=== PATIENT | female | born 1975 | race Caucasian/White ===

== ENCOUNTER → 2018-02-18 14:00 | Outpatient (CLI) | payer OTHER, SELFPAY | DX: Z23 Encounter for immunization (principal) | CPT/HCPCS: 90471; 90686 ==

== ENCOUNTER → 2018-08-26 14:02 | Outpatient (CLI) | payer OTHER, SELFPAY | PROVIDERS: Visit Provider Nurse Practitioner | DX: R30.0 Dysuria (principal); R82.998 Other abnormal findings in urine | CPT/HCPCS: 87086 ==

== ENCOUNTER → 2019-12-01 08:13 | Outpatient (CLI) | payer BC, SELFPAY ==
[2019-12-03 02:31] LABS: COVID19 Sendout Not Detected (Not Detect)
== END ==
PROVIDERS: Visit Provider Physician Assistant
DX: Z03.818 Encounter for observation for suspected exposure to other biological agents ruled out (principal)
CPT/HCPCS: 87635

== ENCOUNTER → 2020-02-16 14:17 | Outpatient (CLI) | payer BC, SELFPAY | PROVIDERS: Referring Provider Internal Medicine; Visit Provider Internal Medicine | DX: Z23 Encounter for immunization (principal) | CPT/HCPCS: 90471; 90686 ==

== ENCOUNTER → 2020-03-05 10:02 | Outpatient (CLI) | payer BC, SELFPAY ==
[2020-03-06 13:16] LABS: COVID19 Sendout Not Detected (Not Detect)
== END ==
PROVIDERS: Visit Provider Nurse Practitioner
DX: Z11.59 Encounter for screening for other viral diseases (principal)
CPT/HCPCS: 87635

== ENCOUNTER → 2020-03-08 12:31 | Outpatient (CLI) | payer BC, SELFPAY ==
[2020-03-09 01:40] LABS: COVID19 Sendout Not Detected (Not Detect)
== END ==
PROVIDERS: Visit Provider Physician Assistant
DX: Z11.59 Encounter for screening for other viral diseases (principal)
CPT/HCPCS: 87635

== ENCOUNTER → 2020-04-27 13:15 | Outpatient (CLI) | payer BC, SELFPAY ==
[2020-04-27 14:29] LABS: COVID19 -Nasal RAPID Negative (Negative)
== END ==
PROVIDERS: Referring Provider Physician Assistant; Visit Provider Physician Assistant
DX: Z20.828 Contact with and (suspected) exposure to other viral communicable diseases (principal)
CPT/HCPCS: 87635

== ENCOUNTER → 2020-08-06 15:56 | Outpatient (CLI) | payer BC, SELFPAY ==
--- NOTE | 2020-08-06 15:59 | DI.ECHO.S_ITS ---
[place] +---------+ : : [address] : [address] : : : : [id number] : : : : Phone: [phone]+ Echocardiogram Report + + :Name: RIGO AYALA V Study Date: 08/06/2020 Height: 66 in : [facility] ReadingLocation: Weight: 175 lb : : Gender: Female BSA: 1.9 m2 : :: 1975 Age: 45 yrs BP: 110/70 mmHg: :Reason For Study: DYSPNEA : :Ordering Physician: ANGEL, : :RAÚL Performed By: Linn Robbins : :Referring: RAÚL PAZ : + + Interpretation Summary 1) Normal left ventricular size and thickness with low normal systolic function (EF 50-55%). 2) Normal right ventricular size and function. 3) No significant valvular abnormalities. 4) Pulmonary artery pressures cannot be estimated because of the lack of a measurable TR jet velocity. 5) No prior Echo available for comparison. Procedure: A two-dimensional transthoracic echocardiogram with color flow and Doppler was performed. The study quality was technically adequate. There is no prior echocardiogram noted for this patient. The patient was in sinus rhythm with heart rates between 72-88 bpm during the exam. Left Ventricle: The left ventricle is normal in size and wall thickness. The ejection fraction is estimated to be 50-55%. Right Ventricle: The right ventricle is normal in size and function. Atria: Both atria are normal in size. There is no Doppler evidence for an interatrial shunt. Mitral Valve: The mitral valve is normal in structure and function. There is no mitral regurgitation noted. Aortic Valve: The aortic valve is trileaflet. The aortic valve opens well. There is no aortic valve stenosis. No aortic regurgitation is present. Tricuspid Valve: The tricuspid valve is normal in structure and function. There is trace tricuspid regurgitation. Pulmonary artery pressures cannot be estimated because of the lack of a measurable TR jet velocity. Pulmonic Valve: The pulmonic valve leaflets are thin and pliable; valve motion is normal. There is no pulmonic valvular regurgitation. Great Vessels: The aortic root is normal size. The dimensions of the ascending aorta are normal. The IVC is of normal diameter and collapses greater than 50% with a sniff. This suggests a low right atrial pressure of 3 mm Hg. Pericardium/ Pleura There is no pericardial effusion. There is no pleural effusion. MMode/2D Measurements & Calculations LVIDd: 4.6 cm LVOT diam: 2.0 cm LVIDs: 3.0 cm Ao root diam: 2.8 cm FS: 35.1 % asc Aorta Diam: 3.0 cm EPSS: 0.52 cm Ao Arch Diam (Prox Trans): 2.7 cm IVSd: 0.63 cm LVPWd: 0.66 cm LV holcomb. diameter/BSA (cm/m^2): 2.4 LV sys. diameter/BSA (cm/m^2): 1.6 LA A2 area: 15.1 cm2 RA long axis: 4.2 cm LA A4 area: 12.6 cm2 RA area: 10.5 cm2 LA length (vol): 4.2 cm RA vol: 22.6 ml LA vol: 38.2 ml RA : 12.0 ml/m2 LA vol index: 20.2 ml/m2 IVC diam: 1.3 cm RVD1 (basal): 2.8 cm TAPSE: 2.0 cm Doppler Measurements & Calculations Ao V2 max: 109.2 cm/sec LVOT Max Joe: 73.8 cm/sec Ao V2 mean: 76.9 cm/sec LV V1 max P.2 mmHg Ao max P.8 mmHg LV V1 VTI: 14.7 cm Ao mean P.6 mmHg RAYSA(I,D): 2.1 cm2 Ao V2 VTI: 21.1 cm RAYSA(V,D): 2.1 cm2 sev ratio: 0.70 RAYSA indexed to BSA (cm^2/m^2): 1.1 MV E max joe: 63.6 cm/sec PA V2 max: 83.4 cm/sec MV A max joe: 68.0 cm/sec PA V2 mean: 58.3 cm/sec MV E/A: 0.94 PA mean P.5 mmHg Med Peak E' Joe: 12.6 cm/sec PA pr(Accel): 17.3 mmHg E/E' med: 5.1 Lat Peak E' Joe: 12.7 cm/sec E/E' lat: 5.0 E/e' average: 5.0 MV dec time: 0.18 sec SV(LVOT): 44.9 ml Reading Physician:09:07 PM
== END ==
PROVIDERS: PCP Physician Assistant Medical; Referring Provider Internal Medicine Cardiovascular Disease; Visit Provider Internal Medicine Cardiovascular Disease
DX: R06.00 Dyspnea, unspecified (principal)
CPT/HCPCS: 93306

== ENCOUNTER 2020-12-03 10:13 | Day surgery (SDC) | payer BC, SELFPAY ==
--- NOTE | 2020-12-03 | PATH_ITS ---
[facility] Accession Number: [id number] . 01 Material submitted: . colon - RANDOM COLON BIOPSY . 01 Clinical history: . SDC . 02 Diagnosis: Random Colon, Biopsy: Colonic mucosa with no diagnostic abnormality. Negative for active, chronic, and microscopic colitis. Negative for dysplasia and malignancy. . MRV 12/05/2020 1050 Local . 02 Electronically signed: . Bryon Riggins MD, PhD, Pathologist NPI- [id number] . 01 Gross description: . RANDOM COLON BIOPSY: Received in formalin is 1 fragment(s) of red, soft tissue measuring 0.2 x 0.2 x 0.1 cm submitted entirely in 1 cassette(s) /RAYSA 12/04/2020 0815 Local . 02 Pathologist provided ICD-10: R93.5 . 02 CPT . 315436 Performed at: 01 [facility] [address] [facility], [place], [place] [id number] MD Anderson Myers MD Phone: [phone] Performed at: 02 [facility] [address] [place], [place] [id number] MD Inna Reis MD Phone: [phone]
[2020-12-03 10:48] LABS: COVID19 -Nasal RAPID Negative (Negative)
[2020-12-03 12:15] VITALS: BP 103/65; PULSE 91; RESP 18; TEMP 36.7; O2SAT 99; BMI 27.4
[2020-12-03] MEDS: SODIUM CHLORIDE 0.9% 1,000 ML 125 ML IV (12:39)
--- NOTE | 2020-12-03 13:10 | PM.HP.1 ---
History of Present Illness History of Present Illness Date Patient Seen: 12/03/20 Time Patient Seen: 13:10 Chief complaint: SDC Narrative: I reviewed Dr Leonard's note. Has been experiencing unexplained bloating, diarrhea and had a recent CT scan that indicates need for further evaluation. Personal remote hx of colon polyps. Last cscope in 2016 was without polyps. Patient History Comment: Please see Dr Leonard's recent clinic note from July of this year. No major changes. Family & Social History Social History: household members spouse Tobacco & Substance use: Smoking Status Never smoker alcohol intake never Substance Use Type does not use Meds Home Medications and Allergies Home Medications Medication Instructions Recorded Confirmed Type albuterol sulfate 90 mcg/actuation 90 mcg INHALATION PRN PRN 12/03/20 12/03/20 History aerosol inhaler fluticasone furoate 200 1 inh INHALATION DAILY 12/03/20 12/03/20 History mcg/actuation blister powder for inhalation (Arnuity Ellipta) fluticasone propionate 50 1 spray INTRANASAL DAILY 12/03/20 12/03/20 History mcg/actuation nasal spray,suspension rosuvastatin 5 mg tablet 2.5 mg PO DAILY 12/03/20 12/03/20 History Allergies Allergy/AdvReac Type Severity Reaction Status Date / Time Sulfa (Sulfonamide AdvReac Intermediate Rash Verified 12/03/20 12:39 Antibiotics) Review of Systems Review of Systems ROS: Yes All systems reviewed with the patient and are negative except as otherwise documented Exam Vital Signs (past 8 hours): - 12/03/20 12:15 Temperature 98.0 F Pulse Rate 91 H Respiratory Rate 18 Blood Pressure 103/65 Pulse Oximetry 99 Oxygen Delivery Method Room Air Const General: cooperative and comfortable Orientation: alert HENMA Head: normocephalic Ears: external ears normal Nose: external nose normal Face and sinus: normal facial exam Mouth: oral mucosae normal Eyes General: appearance normal, both eyes and all related structures Neck Neck: normal visual inspection Chest Chest: normal inspection of the chest Resp Effort & Inspection: normal respiratory effort Auscultation: clear to auscultation bilaterally Cardio Rate: regular rate Rhythm: regular rhythm Heart Sounds: no murmurs GI Inspection: normal to inspection Palpation: soft and No tender Auscultation: normal bowel sounds Skin General: no rashes or lesions noted and No jaundice Neuro General: patient alert and moves all extremities Cognition: normal cognition Speech: speech normal Extrem General: no pedal edema Psych Appearance: grossly normal Objective Labs Labs: Laboratory Results - last 24 hr 12/03/20 10:19 SARS-CoV-2 (PCR) Negative Assessment & Plan Assessment & Plan narrative: Diarrhea, bloating, abnl CT scan. Colonoscopy today.
--- NOTE | 2020-12-03 13:13 | PM.PREOP ---
Pre-operative Note COVID-19 COVID-19 status: Negative Result date/Date tested (Pos, Neg/Pending): 12/03/20 Interval Note History & Physical reviewed/Exam performed by Physician: Yes Changes to H&P: No ASA Class (for procedural sedation): II
--- NOTE | 2020-12-03 13:58 | PM.OP.ENDO ---
Operative Date/Time/Diagnoses Date of procedure: 12/03/20 Time of procedure: 13:58 Pre-op diagnosis: Abnormal imaging possible thickening in the transverse and descending colon. Diarrhea. Bloating. Post-op diagnosis: same Procedure & Clinicians Study performed: Colonoscopy with biopsies Same procedure as scheduled: Yes Indications: Abnormal imaging and diarrhea with bloating Surgeon: Orville Reyes Procedure Notes SCOAP/Timeout: Done Procedure in detail: After the risks and benefits were explained, written and verbal informed consent was obtained. The patient was brought into the procedure room and placed into the left lateral decubitus position. Conscious sedation medication was applied as per nursing documentation. Digital rectal examination was accomplished. The scope was introduced into the patient and advanced under direct visualization to the cecum as identified by the appendiceal orifice and ileocecal valve. The scope was slowly withdrawn to carefully examine the mucosa for any defects or lesions. Comprehensive imaging was accomplished throughout the rectum including the dentate line. The colon was decompressed, the scope was then removed from the patient who tolerated the procedure well. 4mg versed 100mcg fentanyl bowel prep excellent Scope withdrawal time: 7 min Sedation minutes: 17 Complications: none Impression: There was no evidence of proctitis. Slightly tortuous left colon. No evidence of any inflammation throughout the colon this. Special attention was paid to the location described on her the recent CT. Transverse and descending appeared entirely normal. Random colon biopsies were taken for exclusion of microscopic colitis in light of her symptoms. The terminal ileum was interrogated and appeared visually normal. No polyps mass lesions or other pertinent findings. Endoscopic diagnosis 1. Minimal internal hemorrhoids 2. Otherwise visually normal colonoscopy Post-procedure Recommendations: Colonscopy in 10 years Plan for aftercare: 1. Await histopathology 2. Follow up in GI Clinic as before 3. Repeat colonoscopy 10 years sooner should symptoms warrant an earlier exam. Disposition: PACU
[2020-12-03] MEDS: fentaNYL 250 MCG/5 ML INJ IV (14:04)
[2020-12-03] MEDS: MIDAZOLAM 5 MG/5 ML VIAL IV (14:04)
[2020-12-03 14:21] VITALS: BP 105/56; BP 96/58; PULSE 73; PULSE 84; RESP 12; RESP 16; TEMP 36.7; TEMP 36.8; O2SAT 98; O2SAT 99
[2020-12-03 14:26] VITALS: BP 105/56; PULSE 73; RESP 16; O2SAT 100
[2020-12-03 14:31] VITALS: BP 108/57; PULSE 73; RESP 16; O2SAT 100
[2020-12-03 14:46] VITALS: BP 102/57; PULSE 72; RESP 18; TEMP 36.4; O2SAT 99
[2020-12-03 15:00] VITALS: BP 110/66; PULSE 68; RESP 16; TEMP 36.9; O2SAT 99
--- NOTE | 2020-12-03 15:24 | SUR.PHASEII ---
Pt ready to go left in stable condition, belly soft, no nausea.
== END 2020-12-03 15:10 | disposition home or self-care (01) ==
PROVIDERS: PCP Physician Assistant; Referring Provider Internal Medicine Gastroenterology; Visit Provider Internal Medicine Gastroenterology
PROC: 0DJD8ZZ Inspection of Lower Intestinal Tract, Via Natural or Artificial Opening Endoscopic (ICD-10-PCS; CPT 45378; principal; 2020-12-03 12:30)
DX: R19.7 Diarrhea, unspecified (principal); R14.0 Abdominal distension (gaseous); R93.5 Abnormal findings on diagnostic imaging of other abdominal regions, including retroperitoneum
CPT/HCPCS: 45380; 87635; J2250; J3010

== ENCOUNTER → 2021-02-21 11:36 | Outpatient (CLI) | payer BC, SELFPAY | PROVIDERS: PCP Physician Assistant; Referring Provider Internal Medicine; Visit Provider Internal Medicine | DX: Z23 Encounter for immunization (principal) | CPT/HCPCS: 90471; 90686 ==

== ENCOUNTER → 2022-07-09 12:34 | Outpatient (CLI) | payer BC, SELFPAY ==
--- NOTE | 2022-07-09 | DI.US.S_ITS ---
PROCEDURE: US FINE NEEDLE ASPIRATION INDICATIONS: Localized enlarged lymph nodes TECHNIQUE: The indications, alternatives, benefits, risks, and complications of the procedure were explained to the patient. Written informed consent was obtained and placed in the chart. Real-time sonography was utilized to choose the site for percutaneous lymph node sampling. The skin was prepped and draped in the usual sterile fashion. 1% lidocaine was infiltrated down to the site of interest. Serial hypodermic needles were then advanced into the site of interest under direct sonographic visualization, and serial needle aspirates were obtained. The needles were then withdrawn; a bandage was applied to the procedure site. COMPARISON: Outside Film, CT, CT SOFT TISSUE NECK WITH CONTRAST, 03/26/2022, 12:05. Outside Facility, RG, US THYROID/NECK/HEAD, 04/30/2022, 11:31. FINDINGS: Sample site(s): Left neck Needle: 25 gauge. Number of passes: 6. Medications: 1% lidocaine for local anaesthesia. Complications: None. IMPRESSION: Successful ultrasound-guided left neck lymph node fine needle aspiration, with cytology results pending. Dictated by: Gunnar Hester M.D. on 07/09/2022 at 18:16 Approved by: Gunnar Hester M.D. on 07/09/2022 at 18:17
--- NOTE | 2022-07-09 | PATH_ITS ---
Note [facility] Accession Number: [id number] TESTS RESULT FLAG UNITS REF RANGE LAB Clinician Provided Cytology Information No. of containers..01 Other (Miscellaneous) Source: LEFT SUBMANDIBULAR H NODE DIAGNOSIS: LEFT SUBMANDIBULAR LYMPH NODE, FINE NEEDLE ASPIRATION. NEGATIVE FOR MALIGNANT CELLS. FINDINGS SUGGEST A BENIGN LYMPH NODE, SEE COMMENT. COMMENT: EXAMINATION OF THE THIN PREP AND CELL BLOCK SLIDES REVEALS A MILDLY CELLULAR ASPIRATE COMPOSED OF MIXED SMALL AND INTERMEDIATE SIZED LYMPHOCYTES, SUGGESTIVE OF BENIGN LYMPH NODE SAMPLING. CLINICAL AND RADIOLOGIC CORRELATION RECOMMENDED TO ENSURE THAT THE LYMPH NODE IS ADEQUATELY SAMPLED. IF CLINICALLY SUSPICIOUS FOR A NEOPLASM, RE-ASPIRATION/EXCISIONAL BIOPSY SUGGESTED AND IF SUSPICIOUS FOR LOW-GRADE LYMPHOPROLIFERATIVE DISORDER, FLOW CYTOMETRY IS ALSO RECOMMENDED. Pathologist ICD10: 01 R59.0 Signed out by: Ronda Madrigal MD, Pathologist NPI- [id number] Performed by: Zhou Briones, Assembly Cleaner ([facility]) Gross description: 30 CC, PINK, HAZY RECIEVED IN BLUE CAP CONTAINER /RZA 07/10/2022 1233 Local FLAG LEGEND: L-Low Normal,H-High Normal,LL-Alert Low,HH-Alert High <-Panic Low,>-Panic High,A-Abnormal,AA-Critical Abnormal Performed at: 01 =Z [facility] Cytology [address] [place] [address], [place] [address] Anderson Myers MD, Performed at: [address] [place] [address] [facility], [place], [place] [id number] MD Anderson Myers MD Phone: [phone]
== END ==
PROVIDERS: PCP Nurse Practitioner Family; Referring Provider Otolaryngology; Visit Provider Otolaryngology
DX: R59.0 Localized enlarged lymph nodes (principal)
CPT/HCPCS: 10005

== ENCOUNTER → 2023-02-12 | Outpatient (CLI) | payer BC, SELFPAY | PROVIDERS: PCP Nurse Practitioner Family; Referring Provider Family Medicine; Visit Provider Family Medicine | DX: Z23 Encounter for immunization (principal) | CPT/HCPCS: 90471; 90686 ==

== ENCOUNTER → 2024-02-18 | Outpatient (CLI) | payer BC, SELFPAY | PROVIDERS: PCP Nurse Practitioner Family; Referring Provider Internal Medicine; Visit Provider Internal Medicine | DX: Z23 Encounter for immunization (principal) | CPT/HCPCS: 90471; 90656 ==